=== PATIENT | male | born 1945 | race Caucasian/White ===

== ENCOUNTER 2019-02-26 16:46 | Inpatient (IN) | payer MEDICARE, OTHER ==
[~2019-02-26] VITALS: Ht 188 cm; Wt 151.1 kg
[~2019-02-26 16:46] MED LIST: Adult Low Dose81 MG PO; BUDE6HFA INH; CYAN1000 PO; Chlorthalidone25 MG PO; Colace100 MG PO; FENO145 PO; INSUASPI SC; INSULANPEN SC; LISI5 PO; NAPR500 PO; NOVOLOG FL100 UNIT/1 SC; Nitrostat0.4 MG SL; Norco 5-325 Ta1 EACH PO; OLAN5 PO; Omeprazole20 M1 PO; Pravachol40 MG PO; Preservision A1 EACH PO; Prozac20 MG PO; TOCO1000 PO; VIT1CAPS12 PO
[2019-02-26 17:34] LABS: pH Blood Arterial 7.37 (7.35-7.45)
[2019-02-26 17:42] LABS: BASOPHILS ABSOLUTE AUTO 0.06 K/mm3 (0.00-0.23); BASOPHILS PERCENT AUTO 1 % (0-2); EOSINOPHILS PERCENT AUTO 1 % (0-6); Hemoglobin 15.8 g/dL (13.5-17.5); IMMATURE GRAN ABSOLUTE AUTO 0.13 K/mm3 (0.00-0.10); IMMATURE GRAN PERCENT AUTO 2 % (0-1); LYMPHOCYTES ABSOLUTE AUTO 0.87 K/mm3 (0.84-5.20); LYMPHOCYTES PERCENT AUTO 10 % (21-46); MONOCYTES ABSOLUTE AUTO 0.66 K/mm3 (0.16-1.47); MONOCYTES PERCENT AUTO 7 % (4-13); Mean Corpuscular HGB Conc 28.3 g/dL (31.5-36.5); Mean Corpuscular Volume 85 fL (80-100); Mean Platelet Volume 10.3 fL (9.1-12.4); NEUTROPHILS ABSOLUTE AUTO 7.08 K/mm3 (1.96-9.15); NEUTROPHILS PERCENT AUTO 80 % (41-73); Platelet Count 196 K/mm3 (150-400); RDW Coefficient Variation 19.6 % (11.7-14.2); RDW Standard Deviation 56.6 fL (35.1-46.3); Red Blood Cell Count 6.57 M/mm3 (4.30-5.90)
[2019-02-26 17:47] LABS: Hematocrit 55.9 % (37.0-53.0)
[2019-02-26 17:58] LABS: Alanine Aminotransfer (ALT/SGP 17 U/L (12-78); Albumin, Blood 3.5 g/dL (3.4-5.0); Albumin/Globulin Ratio 0.9 (0.8-1.8); Alk Phos 46 U/L (50-136); Anion Gap 3 mmol/L (6-16); Aspartate Aminotrans (AST/SGOT 17 U/L (12-37); Bilirubin, Total 0.6 mg/dL (0.1-1.0); Blood Urea Nitrogen 19 mg/dL (8-24); Bun/Creatinine Ratio 24.3 (12.0-20.0); CO2, Blood 34 mmol/L (21-32); Calcium, Blood 9.2 mg/dL (8.5-10.1); Chloride, Blood 97 mmol/L (98-108); Creatinine, Blood 0.78 mg/dL (0.60-1.20); Glomerular Filtration Rate >60 (60-); Glucose, Blood 126 mg/dL (70-99); Potassium, Blood 3.9 mmol/L (3.5-5.5); Sodium, Blood 134 mmol/L (136-145); Total Protein, Blood 7.5 g/dL (6.4-8.2); Troponin I 0.392 ng/mL (0.000-0.040)
[2019-02-26] MEDS ORDERED: ALBU90OI INH (18:15)
[2019-02-26] MEDS ORDERED: LOSA50 PO (18:16)
[2019-02-26] MEDS ORDERED: TRULICITY1.5 MG/0.5 SC (18:18)
[2019-02-26] MEDS ORDERED: THERA-D2000 UNIT PO (18:20)
[2019-02-26] MEDS ORDERED: JARDIANCE25 MG PO (18:24)
[2019-02-26] MEDS ORDERED: Glucose4 GM PO (18:25)
[2019-02-26] MEDS ORDERED: NOVOLOG FL100 UNIT/1 SC (18:43)
[2019-02-26] MEDS ORDERED: METO25ER PO (18:45)
[2019-02-26] MEDS ORDERED: Lomotil Tablet1 EACH PO (18:45)
[2019-02-27 03:44] LABS: BASOPHILS ABSOLUTE AUTO 0.03 K/mm3 (0.00-0.23); BASOPHILS PERCENT AUTO 0 % (0-2); EOSINOPHILS PERCENT AUTO 0 % (0-6); Hematocrit 53.9 % (37.0-53.0); Hemoglobin 15.4 g/dL (13.5-17.5); IMMATURE GRAN ABSOLUTE AUTO 0.12 K/mm3 (0.00-0.10); IMMATURE GRAN PERCENT AUTO 1 % (0-1); LYMPHOCYTES ABSOLUTE AUTO 0.43 K/mm3 (0.84-5.20); LYMPHOCYTES PERCENT AUTO 5 % (21-46); MONOCYTES ABSOLUTE AUTO 0.33 K/mm3 (0.16-1.47); MONOCYTES PERCENT AUTO 4 % (4-13); Mean Corpuscular HGB 24.3 pg (26.0-34.0); Mean Corpuscular HGB Conc 28.6 g/dL (31.5-36.5); Mean Corpuscular Volume 85 fL (80-100); Mean Platelet Volume 10.9 fL (9.1-12.4); NEUTROPHILS ABSOLUTE AUTO 8.16 K/mm3 (1.96-9.15); NEUTROPHILS PERCENT AUTO 90 % (41-73); Platelet Count 180 K/mm3 (150-400); RDW Coefficient Variation 19.2 % (11.7-14.2); RDW Standard Deviation 56.3 fL (35.1-46.3); Red Blood Cell Count 6.34 M/mm3 (4.30-5.90); White Blood Cell Count 9.07 K/mm3 (4.00-11.30)
[2019-02-27 04:04] LABS: Anion Gap 5 mmol/L (6-16); Blood Urea Nitrogen 18 mg/dL (8-24); Bun/Creatinine Ratio 25.8 (12.0-20.0); CO2, Blood 34 mmol/L (21-32); Calcium, Blood 8.6 mg/dL (8.5-10.1); Chloride, Blood 99 mmol/L (98-108); Glomerular Filtration Rate >60 (60-); Glucose, Blood 135 mg/dL (70-99); Potassium, Blood 4.5 mmol/L (3.5-5.5); Sodium, Blood 138 mmol/L (136-145); Troponin I 0.358 ng/mL (0.000-0.040)
--- NOTE | 2019-02-27 05:05 | NUR ---
END OF SHIFT SUMMARY PT TO UNIT FROM ED. AXO. EXERTIONALLY DYSPNEIC. FINE CRACKLES. ON 4LNC UPON ARRIVAL. TITRATED TO 6LNC. SPO2 REMAINED 90'S. DENIES CP. PT ORIENTED TOP ROOM. ADMISSION PAPERWORK COMPLETED. RT SET UP CPAP. THROUGHOUT NIGHT, HAVE HAD TO ADJUST MASK AND TITRATE CPAP MAST TO 11NC TO MAINTAIN SPO2 >90%. RT IS AWARE OF THIS AND HAVE BEEN IN ROOM TO ASSIST WITH THIS. PT FINALLY SETTLED IN AROUND 1300 AND HAS SINCE BEEN RESTING WITH SATS @90 - 92%. CRACKLES HAVE DIMINISHED. PT HAS VOIDED OVER 2L THIS NIGHT POST LASIX IN ED. PT STATES BREATHING "FEELS EASIER." PT HAS USED CALL LIGHT APPROPRIATELY. WILL CONTINUE TO MONITOR UNTIL SHIFT CHANGE.
--- NOTE | 2019-02-27 10:09 | NUR ---
Echocardiogram completed.
--- NOTE | 2019-02-27 11:07 | NUR ---
Assumed care of pt at approx 0700. Upon arrival, pt sleeping on CPAP with 11L bleed in. Pt began desaturating to 80-84% sustained; bleed in increased to 15L and RT called to evaluate. Pt repositioned without improvement of saturations. RT replaced mask. Pt awake, transistioned to hi flow NC at 6L with o2 saturations sustained at 90-93%. Pt breathing even and unlabored at this time. VSS. See shift assessment for detailed assessment. Pt alert and oriented, able to make needs known, ind uses urinal to void at bedside and can ambulate with minimal assistance. Pt takes pills whole with water. Lasix given and voiding as charted. No acute concerns to note at this time. Will continue to monitor.
--- NOTE | 2019-02-27 18:36 | NUR ---
Shift Summary No acute concerns to note today. Pt maintained o2 saturations between 90-92% on 6L hi flow NC. Pt alert and oriented, no acute declines from initial shift assessment. Pt voiding at bedside into urinal independantly. VSS. No events on Tele. Echo completed today. Diruesing continues. will continue to monitor until NOC RN assumes care
[2019-02-28 04:11] LABS: BASOPHILS ABSOLUTE AUTO 0.04 K/mm3 (0.00-0.23); BASOPHILS PERCENT AUTO 0 % (0-2); EOSINOPHILS ABSOLUTE AUTO 0.11 K/mm3 (0.00-0.68); EOSINOPHILS PERCENT AUTO 1 % (0-6); Hematocrit 54.8 % (37.0-53.0); Hemoglobin 15.4 g/dL (13.5-17.5); IMMATURE GRAN ABSOLUTE AUTO 0.07 K/mm3 (0.00-0.10); IMMATURE GRAN PERCENT AUTO 1 % (0-1); LYMPHOCYTES ABSOLUTE AUTO 0.76 K/mm3 (0.84-5.20); LYMPHOCYTES PERCENT AUTO 8 % (21-46); MONOCYTES PERCENT AUTO 9 % (4-13); Mean Corpuscular HGB Conc 28.1 g/dL (31.5-36.5); Mean Corpuscular Volume 85 fL (80-100); Mean Platelet Volume 10.1 fL (9.1-12.4); NEUTROPHILS ABSOLUTE AUTO 7.63 K/mm3 (1.96-9.15); NEUTROPHILS PERCENT AUTO 81 % (41-73); Platelet Count 184 K/mm3 (150-400); RDW Coefficient Variation 19.3 % (11.7-14.2); RDW Standard Deviation 56.6 fL (35.1-46.3); Red Blood Cell Count 6.42 M/mm3 (4.30-5.90); White Blood Cell Count 9.41 K/mm3 (4.00-11.30)
[2019-02-28 04:32] LABS: Anion Gap 2 mmol/L (6-16); Blood Urea Nitrogen 27 mg/dL (8-24); Bun/Creatinine Ratio 31.6 (12.0-20.0); CO2, Blood 41 mmol/L (21-32); Calcium, Blood 9.4 mg/dL (8.5-10.1); Chloride, Blood 94 mmol/L (98-108); Creatinine, Blood 0.85 mg/dL (0.60-1.20); Glomerular Filtration Rate >60 (60-); Glucose, Blood 146 mg/dL (70-99); Potassium, Blood 3.8 mmol/L (3.5-5.5); Sodium, Blood 137 mmol/L (136-145)
--- NOTE | 2019-02-28 05:11 | NUR ---
SHIFT SUMMARY: PATIENT IS A&O X4, NO COMPLIANTS OF PAIN, DISCOMFORT OR SOB. PATIENT SHOWERED AT HS WITH SET UP ASSIST, TOLERATED ACTIVITY WELL. MAINTAINS 02 SATS. 91-92% ON 6L NC WHILE AWAKE AND 91-92% ON CPAP WITH 11L BLEED IN. WILL CONTINUE TO MONITOR.
--- NOTE | 2019-02-28 17:55 | NUR ---
Shift Summary No acute events today. VSS. Pt able to be titrated from 6L hiflow NC to 4L with oxygen saturations maintained at 88-92%. VSS. Alert and oriented. Able to ambulate throughout the room independantly. Voids in urinal at bedside. Pt calm and cooperative with staff and involved in plan of care. No concerns to note. No declines from initial shift assessment. Plan to continue diuresing. Will continue monitoring until NOC RN assumes care
[2019-03-01 05:03] LABS: Anion Gap 4 mmol/L (6-16); Blood Urea Nitrogen 24 mg/dL (8-24); Bun/Creatinine Ratio 33.3 (12.0-20.0); CO2, Blood 38 mmol/L (21-32); Calcium, Blood 9.4 mg/dL (8.5-10.1); Chloride, Blood 95 mmol/L (98-108); Creatinine, Blood 0.72 mg/dL (0.60-1.20); Glomerular Filtration Rate >60 (60-); Glucose, Blood 117 mg/dL (70-99); Potassium, Blood 3.8 mmol/L (3.5-5.5); Sodium, Blood 137 mmol/L (136-145)
--- NOTE | 2019-03-01 06:04 | NUR ---
SHIFT SUMMARY PT SLEEPING IN ROOM COMFORTABLY AT THIS TIME. NO ACUTE CHANGES IN STATUS T/O NIGHT. PT SLEPT WELL AND WORE CPAP T/O NIGHT WITH NO EPISODES OF DESATURATION. RESP EVEN UNLABORED ON CPAP W/ SATS >92%. DENIED ANY CP OR SOB. PT ABLE TO USE URINAL INDEPENDENTLY AT BEDSIDE. DENIED OTHER NEEDS. CALL LIGHT IN REACH.
--- NOTE | 2019-03-01 07:31 | NUR ---
ASSUMED CARE: PT RESTING QUIETLY. CPAP IN PLACE. NO ACUTE NEEDS OR CONCERNS AT THIS TIME.
--- NOTE | 2019-03-01 10:15 | NUR ---
REPORT CALLED TO ZOEY LEDBETTER. PT TRANSFERRED VIA WHEEL CHAIR, ESCORTED BY HOSPITAL STAFF. ACCOMPANYING. NO ACUTE NEEDS OR CONCERNS.
--- NOTE | 2019-03-01 10:15 | NUR ---
RECEIVED PAITENT FROM PCU VIA W/C ACCOMPANIED BY HEIDI, RN AND SPOUSE. PT REPORTS "VERY SLIGHT" SHORTNESS OF BREATH. PT AND SPOUSE ORIENTED TO ROOM AND FREQUENT ROUNDING SCHEDULE. BED LOW AND IN LOCKED POSITION, CALL LIGHT WITHIN REACH. VSS.
--- NOTE | 2019-03-01 17:47 | NUR ---
SHIFT SUMMARY OX4. SBA. CONTINENT. PLEASANT. LASIX. 5L NC O2 SATS LOW 90'S. ACUTE DIASTOLIC HEART FAILURE. ENCOURAGE AMBULATOION. PT'S SPOUSE ATTENTIVE AND AT BEDSIDE. CBG'S AC NO COVERAGE.
--- NOTE | 2019-03-02 04:50 | NUR ---
SHIFT SUMMARY PT LS DIMINISHED IN LOWER LOBES AND BT+. PT TOOK SHOWER LAST NIGHT AND WAS READY FOR BED. HELPED PT PUT ON HIS BIPAP MASK AND GOT HIS CONTINUOUS BIOX HOOKED UP WELL. HIS O2 SATS DROPPED DOWN TO 84-89 AFTER HE HAD BEEN ASLEEP FOR AWHILE. WE CHANGED THE BIOX SENSOR AND TOOK HIS VS WITH THE PORTABLE MONITOR. THEY SEEMED TO BE CONSISTENT WITH THE CONTINUOUS BIOX MACHINE SO THIS RN TURNED UP HIS O2 TO 6.5 LPM (FROM 6 LPM) AND THEY HAVE BEEN STAYING ABOVE 90%. HE SEEMS TO BE SLEEPING WELL T/O THE NIGHT EXCEPT WHEN UP TO BATHROOM.
[2019-03-02 05:45] LABS: Anion Gap 5 mmol/L (6-16); Blood Urea Nitrogen 22 mg/dL (8-24); Bun/Creatinine Ratio 33.7 (12.0-20.0); CO2, Blood 38 mmol/L (21-32); Calcium, Blood 9.4 mg/dL (8.5-10.1); Chloride, Blood 94 mmol/L (98-108); Creatinine, Blood 0.65 mg/dL (0.60-1.20); Glomerular Filtration Rate >60 (60-); Glucose, Blood 135 mg/dL (70-99); Potassium, Blood 3.5 mmol/L (3.5-5.5); Sodium, Blood 137 mmol/L (136-145)
--- NOTE | 2019-03-02 17:40 | NUR ---
SHIFT SUMMARY OX3. REMAINED REQUIRING 6L 02 ON NC THROUGHOUT SHIFT. LASIX DOSING INCREASED BY MD. EATING AND DRINKING WELL. LAUGHS OFTEN AND APPEARS IN GOOD SPIRITS. SBA TO BATHROOM. DIURESING WELL. EDEMA TO LOWER EXTREMETIES. CBG'S STABLE AND NOT REQUIRING ADDITIONAL TREATMENT.
--- NOTE | 2019-03-03 05:14 | NUR ---
SHIFT SUMMARY PT'S LS CLEAR IN UPPER LOBES AND DIMINISHED IN LOWER LOBES. BT+ X4. PT IS INDEPENDENT TO USE URINAL AND TOILET. TRACE EDEMA IN BLE'S. PT STATES HE FEELS SO MUCH BETTER AND HIS FEET DON'T HURT ANYMORE FROM THE EDEMA HE HAD. HIS LASIX WAS INCREASED YESTERDAY TO 60MG BID. PT STATES HE HAS BEEN URINATING FREQUENTLY. MINIMAL SOB WITH EXERTION. PT APPEARS TO BE SLEEPING MOST OF THE NIGHT. CONTINUOUS BIOX IN PLACE BUT BIOX HAS BEEN STAYING ABOVE 90% T/O THE NIGHT.
[2019-03-03 05:16] LABS: BASOPHILS ABSOLUTE AUTO 0.04 K/mm3 (0.00-0.23); BASOPHILS PERCENT AUTO 1 % (0-2); EOSINOPHILS ABSOLUTE AUTO 0.19 K/mm3 (0.00-0.68); EOSINOPHILS PERCENT AUTO 2 % (0-6); Hematocrit 52.9 % (37.0-53.0); Hemoglobin 15.1 g/dL (13.5-17.5); IMMATURE GRAN ABSOLUTE AUTO 0.05 K/mm3 (0.00-0.10); IMMATURE GRAN PERCENT AUTO 1 % (0-1); LYMPHOCYTES ABSOLUTE AUTO 0.76 K/mm3 (0.84-5.20); LYMPHOCYTES PERCENT AUTO 10 % (21-46); MONOCYTES ABSOLUTE AUTO 0.73 K/mm3 (0.16-1.47); MONOCYTES PERCENT AUTO 9 % (4-13); Mean Corpuscular HGB Conc 28.5 g/dL (31.5-36.5); Mean Corpuscular Volume 84 fL (80-100); Mean Platelet Volume 10.7 fL (9.1-12.4); NEUTROPHILS ABSOLUTE AUTO 6.25 K/mm3 (1.96-9.15); NEUTROPHILS PERCENT AUTO 78 % (41-73); Platelet Count 189 K/mm3 (150-400); RDW Coefficient Variation 18.6 % (11.7-14.2); RDW Standard Deviation 54.5 fL (35.1-46.3); Red Blood Cell Count 6.29 M/mm3 (4.30-5.90); White Blood Cell Count 8.02 K/mm3 (4.00-11.30)
[2019-03-03 05:35] LABS: Albumin, Blood 3.2 g/dL (3.4-5.0); Anion Gap 6 mmol/L (6-16); Blood Urea Nitrogen 25 mg/dL (8-24); Bun/Creatinine Ratio 37.5 (12.0-20.0); CO2, Blood 35 mmol/L (21-32); Calcium, Blood 9.6 mg/dL (8.5-10.1); Chloride, Blood 96 mmol/L (98-108); Creatinine, Blood 0.67 mg/dL (0.60-1.20); Glomerular Filtration Rate >60 (60-); Glucose, Blood 138 mg/dL (70-99); Phosphorus, Blood 4.3 mg/dL (2.5-4.9); Potassium, Blood 3.7 mmol/L (3.5-5.5); Sodium, Blood 137 mmol/L (136-145)
--- NOTE | 2019-03-03 18:44 | NUR ---
SHIFT SUMMARY PT INDEPENDENT IN ROOM AFTER P.T. WORKED WITH HIM. DENIES ANY RESP DISTRESS THROUGH DAY. WAS STRUGGLING TO KEEP O2 UP IN THE 90'S WITH P.T. AND O2 WAS INCREASED. FINGER PROBE ON CONTINUOUS OXIMETRY CHANGED AND HAS HAD NO PROBLEMS SINCE. O2 REDUCED TO 2.5L/M AND TOLERATING WITH NO PROBLEM. FAMILY IN TO VISIT THIS AFTERNOON AND PT KEPT THEM ENTERTAINED.
--- NOTE | 2019-03-04 05:32 | NUR ---
SHIFT SUMMARY NO ACUTE CHANGES. PT SLEPT WELL THROUGH THE NIGHT, CPAP ON WHILE SLEEPING. CONT PULSE OX IN PLACE; O2 SATS >90%. ON 2.5 L VIA NC WHEN NOT ON CPAP. INDEPENDENT IN RM. PT DYSPNEIC WITH MOVEMENT AND AMBULATION. 1+ BLE EDEMA NOTED TO BLE, PT STATES THIS IS A GREAT IMPROVEMENT. WILL CONT TO MONITOR AND PROVIDE CARE UNTIL PRESUMED BY ONCOMING RN.
[2019-03-04 06:06] LABS: BASOPHILS ABSOLUTE AUTO 0.04 K/mm3 (0.00-0.23); BASOPHILS PERCENT AUTO 1 % (0-2); EOSINOPHILS ABSOLUTE AUTO 0.18 K/mm3 (0.00-0.68); EOSINOPHILS PERCENT AUTO 2 % (0-6); Hematocrit 51.7 % (37.0-53.0); Hemoglobin 14.9 g/dL (13.5-17.5); IMMATURE GRAN ABSOLUTE AUTO 0.04 K/mm3 (0.00-0.10); IMMATURE GRAN PERCENT AUTO 1 % (0-1); LYMPHOCYTES ABSOLUTE AUTO 0.78 K/mm3 (0.84-5.20); LYMPHOCYTES PERCENT AUTO 9 % (21-46); MONOCYTES ABSOLUTE AUTO 0.74 K/mm3 (0.16-1.47); MONOCYTES PERCENT AUTO 9 % (4-13); Mean Corpuscular HGB Conc 28.8 g/dL (31.5-36.5); Mean Corpuscular Volume 83 fL (80-100); Mean Platelet Volume 10.5 fL (9.1-12.4); NEUTROPHILS PERCENT AUTO 79 % (41-73); Platelet Count 184 K/mm3 (150-400); RDW Coefficient Variation 18.9 % (11.7-14.2); RDW Standard Deviation 53.7 fL (35.1-46.3); Red Blood Cell Count 6.21 M/mm3 (4.30-5.90); White Blood Cell Count 8.28 K/mm3 (4.00-11.30)
[2019-03-04 06:27] LABS: Albumin, Blood 3.3 g/dL (3.4-5.0); Anion Gap 4 mmol/L (6-16); Blood Urea Nitrogen 24 mg/dL (8-24); Bun/Creatinine Ratio 34.9 (12.0-20.0); CO2, Blood 36 mmol/L (21-32); Calcium, Blood 9.2 mg/dL (8.5-10.1); Chloride, Blood 95 mmol/L (98-108); Creatinine, Blood 0.69 mg/dL (0.60-1.20); Glomerular Filtration Rate >60 (60-); Glucose, Blood 157 mg/dL (70-99); Phosphorus, Blood 4.1 mg/dL (2.5-4.9); Potassium, Blood 3.7 mmol/L (3.5-5.5); Sodium, Blood 135 mmol/L (136-145)
--- NOTE | 2019-03-04 09:50 | NUR ---
Initial palliative care consult: Carlos is a 73 year old gentleman with a history of HTN, DM, COPD, PTSD, GERD, hyperlipidemia, OLIVE with CPAP use. He has a new diagnosis of CHF. He just completed his home O2 evaluation and was assessed by Dr. Stewart who is planning to discharge him home. He is sitting up in the bedside chair during my visit. CHF education completed and CHF booklet given. Pt is receptive to information. He states Dr. Stewart spoke to him about decreasing his sodium intake and he has already spoken with his prior to my visit. He reports she is supportive of dietary changes and is planning to decrease her sodium intake as well according to Carlos. He reports he will be going home on oxygen. Questions answered. Set up shower for him to take a shower prior to his discharge. He is independent with ADLs at home. He voices no concerns at this time.
[2019-03-04] MEDS ORDERED: ACET500 PO (11:59)
[2019-03-04] MEDS ORDERED: ASPI81CH PO (11:59)
[2019-03-04] MEDS ORDERED: CARV3.125 PO (12:00)
[2019-03-04] MEDS ORDERED: Flonase 0.05% N16 GM (12:01)
[2019-03-04] MEDS ORDERED: DOCUSATE SODIU1 EACH PO (12:01)
[2019-03-04] MEDS ORDERED: AIRDUO RESPICL1 EAC2 PO (12:04)
[2019-03-04] MEDS ORDERED: SPIR25 PO (12:05)
[2019-03-04] MEDS ORDERED: Lasix20 MG PO (12:05)
--- NOTE | 2019-03-04 14:00 | NUR ---
DISCHARGE INSTRUCTIONS COMPLETED AND DISCUSSED WITH PT EXPRESSING UNDERSTANDING. [facility] FAXED [facility]. PRESENT WITH DISCUSSION WELL AND HELPED IN UNDERSTANDING OF INFORMATION. TO [facility] VIA W/C.
[2019-04-08] MEDS ORDERED: POTA10T PO (13:33)
== END 2019-03-04 14:00 | disposition home or self-care (01) | DRG 280 ==
LOC: ER 16:46 → PCU 18:48 → MEDS 03-01 10:10 → ENPENDDIS 03-04 10:16 → MEDS 03-04 14:00
PROVIDERS: Internal Medicine; Physician Assistant; ADMIT Internal Medicine
DX: I11.0 Hypertensive heart disease with heart failure (principal); I50.31 Acute diastolic (congestive) heart failure; I21.9 Acute myocardial infarction, unspecified; J96.01 Acute respiratory failure with hypoxia; J96.02 Acute respiratory failure with hypercapnia; Z68.41 Body mass index [BMI] 40.0-44.9, adult; J44.9 Chronic obstructive pulmonary disease, unspecified; E11.9 Type 2 diabetes mellitus without complications; G47.33 Obstructive sleep apnea (adult) (pediatric); E66.01 Morbid (severe) obesity due to excess calories; R53.81 Other malaise; Z79.4 Long term (current) use of insulin; E78.5 Hyperlipidemia, unspecified; K21.9 Gastro-esophageal reflux disease without esophagitis; Z87.891 Personal history of nicotine dependence
CPT/HCPCS: 36415; 36416; 36600; 71046; 80048; 80053; 80069; 82803; 82947; 83735; 83880; 84484; 85025; 93005; 93010; 93308; 93321; 94640; 94660; 94761; 94762; 96374; 96375; 97162; 97530; 99285-25; J1650; J1940; J2930

== ENCOUNTER 2019-04-09 09:13 | Day surgery (SDC) | payer MEDICARE, OTHER ==
[~2019-04-09] VITALS: Ht 188 cm; Wt 136.0 kg
[~2019-04-09 09:13] MED LIST changes: +ACET500 PO; +AIRDUO RESPICL1 EAC2 PO; +ALBU90OI INH; +ASPI81CH PO; +CARV3.125 PO; +DOCUSATE SODIU1 EACH PO; +Flonase 0.05% N16 GM; +Glucose4 GM PO; +JARDIANCE25 MG PO; +LOSA50 PO; +Lasix20 MG PO; +Lomotil Tablet1 EACH PO; +METO25ER PO; +POTA10T PO; +SPIR25 PO; +THERA-D2000 UNIT PO; +TRULICITY1.5 MG/0.5 SC
--- NOTE | 2019-04-09 12:20 | NUR ---
PT TO RECOVERY POST PROCEDURE. PT IS ALERT AND ORIENTED, PLEASENT AND COOPERATIVE. PT DENIES CHEST PAIN/PRESSURE POST PROCEDURE. MONITOR SB 50'S, B/P 135/65, AFEBRILE, SPO2 95% 3L NC. R RADIAL SITE NO SWELLING/HEMATOMA, TR BAND IN PLACE.
--- NOTE | 2019-04-09 15:35 | NUR ---
PT AMB TO BATHROOM, GAIT STEADY, SITE UNCHANGED WITH ACTIVITY.
--- NOTE | 2019-04-09 16:00 | NUR ---
PT DRESSED WITH ASSISTANCE FROM , SITE UNCHANGED. TR BAND REMOVED, CLOTH DOT AND WRIST IMMOBILIZER PLACED; IV REMOVED-CANNULA INTACT.
--- NOTE | 2019-04-09 16:10 | NUR ---
PT AND RECEIVED DISCHARGE INSTRUCTIONS, MED LIST AND "AFTER CARE" INSTRUCTIONS; VERBALIZED GOOD UNDERSTANDING. PT LEFT FACILITY VIA W/C, CONDITION STABLE.
== END 2019-04-09 16:10 | disposition home or self-care (01) ==
LOC: MHTC 09:13
PROC: B201YZZ Plain Radiography of Multiple Coronary Arteries using Other Contrast (ICD-10-PCS; principal; 2019-04-09)
PROC: 4A023N7 Measurement of Cardiac Sampling and Pressure, Left Heart, Percutaneous Approach (ICD-10-PCS; principal; 2019-04-09)
DX: I25.10 Atherosclerotic heart disease of native coronary artery without angina pectoris (principal); I11.0 Hypertensive heart disease with heart failure; I50.9 Heart failure, unspecified; E11.9 Type 2 diabetes mellitus without complications; E78.5 Hyperlipidemia, unspecified; F32.9 Major depressive disorder, single episode, unspecified; E66.9 Obesity, unspecified; Z79.82 Long term (current) use of aspirin; Z79.4 Long term (current) use of insulin; Z87.891 Personal history of nicotine dependence; Z88.8 Allergy status to other drugs, medicaments and biological substances
CPT/HCPCS: 76937; 82947; 85347; 93005; 93010; 93458; 93571; 99152; 99153; C1769; C1887; C1894; J1644; J2250; J3010; J7030; Q9967